=== PATIENT | male | born 2000 | race Caucasian/White ===

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

== ENCOUNTER 2022-02-07 15:38 | Emergency (ER) | payer BC, OTHER ==
[2022-02-07 15:50] VITALS: BP 146/88; PULSE 91; RESP 20; TEMP 98.6
--- NOTE | 2022-02-07 16:18 | ED ---
General Adult HPI - General Chief complaint: Burn/Smoke Inhalation Stated complaint: [facility] hand burn Time Seen by Provider: 02/07/22 16:10 Source: patient Mode of arrival: ambulatory Limitations: no limitations - History of Present Illness Initial comments: Dictation was produced using [employer] dictation software. please excuse any grammatical, word or spelling errors. Chief Complaint: 22 y Old male presents to emergency Department for burn to the right hand History of Present Illness: Patient is a 22-year-old male he works at [employer]. Patient states that 2 hours ago he accidentally poured some hot coffee on the back of his right hand. Patient decided to leave work. He ended up being brought to the emergency department by his mother. Patient has any blistering. He's been putting ice pack on it. The ROS documented in this emergency department record has been reviewed and confirmed by me. Those systems with pertinent positive or negative responses have been documented in the HPI. All other systems are other negative and/or noncontributory. PHYSICAL EXAM: General Impression: Alert and oriented x3, not in acute distress HEENT: Normocephalic atraumatic, extra-ocular movements intact, pupils equal and reactive to light bilaterally, mucous membranes moist. Cardiovascular: Heart regular rate and rhythm Chest: Able to complete full sentences, no retractions, no tachypnea Motor: no focal deficits noted Neurological: CN II-XII grossly intact, no focal motor or sensory deficits noted Skin: Mild first-degree burn to the dorsum of the right hand, is not circumferential or involving the digits. No blistering, slight palpatory tenderness. Very mild erythema Psych: Normal affect and mood ED course: 22-year-old male presents to the emergency Department for superficial burn to the right hand. Vital signs upon arrival are within acceptable limits. Reassurance provided. Patient will be discharged. - Related Data Allergies Allergy/AdvReac Type Severity Reaction Status Date / Time No Known Allergies Allergy Verified 02/07/22 15:50 Review of Systems ROS Statement: Those systems with pertinent positive or pertinent negative responses have been documented in the HPI. ROS Other: All systems not noted in ROS Statement are negative. Past Medical History Past Medical History: No Reported History History of Any Multi-Drug Resistant Organisms: None Reported Past Surgical History: No Surgical Hx Reported Past Psychological History: No Psychological Hx Reported Smoking Status: Never smoker Past Alcohol Use History: None Reported Past Drug Use History: None Reported General Exam Limitations: no limitations Course Vital Signs 02/07/22 15:48 Temperature 98.6 F Pulse Rate 91 Respiratory 20 Rate Blood Pressure 146/88 O2 Sat by Pulse 99 Oximetry Disposition Clinical Impression: Burn Disposition: HOME SELF-CARE Condition: Good Instructions (If sedation given, give patient instructions): Superficial Burn (ED) Is patient prescribed a controlled substance at d/c from ED?: No Referrals: Ike Lamas MD [Primary Care Provider] - 1-2 days
== END 2022-02-07 16:38 | disposition home or self-care (01) ==
LOC: EC 15:38
DX: T23.001A Burn of unspecified degree of right hand, unspecified site, initial encounter (principal)

== ENCOUNTER → 2024-08-21 | Outpatient (CLI) | payer BC ==
[2024-08-21 19:23] LABS: ALT 52 U/L (10-49); AST 27 U/L (14-35); Albumin 4.4 g/dL (3.8-4.9); Albumin/Globulin Ratio 1.63 Ratio (1.60-3.17); Alkaline Phosphatase 120 U/L (41-126); Bilirubin, Conjugated <0.20 mg/dL (0.20-0.40); Bilirubin,Unconjugated >0.10 mg/dL (0.20-1.00); Chol/HDL Ratio 4.94 Ratio; Globulin 2.7 g/dL (1.6-3.3); LDL Cholesterol,Calculated 158.6 mg/dL (0.0-131.0); Total Bilirubin 0.3 mg/dL (0.3-1.2); Total Protein 7.1 g/dL (6.2-8.2)
== END | disposition home or self-care (01) ==
LOC: LABWHC1 13:20
PROVIDERS: ATTEND Dermatology
DX: L70.0 Acne vulgaris (principal); Z79.899 Other long term (current) drug therapy
CPT/HCPCS: 36415; 80061; 80076; 83721

== ENCOUNTER → 2024-09-25 | Outpatient (CLI) | payer BC ==
[2024-09-25 10:38] LABS: Chol/HDL Ratio 6.94 Ratio
[2024-09-26 00:08] LABS: ALT 43 U/L (10-49); AST 31 U/L (14-35); Albumin 4.3 g/dL (3.8-4.9); Albumin/Globulin Ratio 1.48 Ratio (1.60-3.17); Alkaline Phosphatase 120 U/L (41-126); Bilirubin, Conjugated <0.20 mg/dL (0.20-0.40); Bilirubin,Unconjugated >0.10 mg/dL (0.20-1.00); Globulin 2.9 g/dL (1.6-3.3); Total Bilirubin 0.3 mg/dL (0.3-1.2); Total Protein 7.2 g/dL (6.2-8.2)
== END | disposition home or self-care (01) ==
LOC: LABWHC1 07:36
PROVIDERS: ATTEND Dermatology
DX: Z79.899 Other long term (current) drug therapy (principal); L70.0 Acne vulgaris
CPT/HCPCS: 36415; 80061; 80076